=== PATIENT | female | born 1950 | race African-American/Black ===

== ENCOUNTER 2017-10-22 11:43 | Emergency (ER) | payer OTHER ==
[~2017-10-22] VITALS: Ht 167.6 cm; Wt 81.7 kg
[2017-10-22] MEDS ORDERED: HYDROCODONE-AP1 EAC6 PO (13:49)
[2017-10-22 14:06] VITALS: BP 161/99
== END 2017-10-22 13:45 | disposition home or self-care (01) ==
LOC: ER 11:43
DX: M25.462 Effusion, left knee (principal); G89.29 Other chronic pain; M25.562 Pain in left knee; T24.222A Burn of second degree of left knee, initial encounter; T31.0 Burns involving less than 10% of body surface; I10 Essential (primary) hypertension; I48.91 Unspecified atrial fibrillation; E03.9 Hypothyroidism, unspecified; M13.869 Other specified arthritis, unspecified knee; Z88.0 Allergy status to penicillin; Z88.1 Allergy status to other antibiotic agents; Z91.013 Allergy to seafood; X16.XXXA Contact with hot heating appliances, radiators and pipes, initial encounter; Y93.89 Activity, other specified; Y92.89 Other specified places as the place of occurrence of the external cause; Y99.8 Other external cause status

== ENCOUNTER 2020-07-07 10:43 | Emergency (ER) | payer OTHER ==
[~2020-07-07] VITALS: Ht 165.1 cm; Wt 81.7 kg
[~2020-07-07 10:43] MED LIST: HYDROCODONE-AP1 EAC6 PO
[2020-07-07 12:11] LABS: ABSOLUTE NEUTROPHILS 6.7 thou/uL (1.4-8.2); BASOPHILS 0.4 % (0.0-2.0); EOSINOPHILS 1.2 % (0.0-3.0); HEMATOCRIT 39.9 % (37.0-47.0); HEMOGLOBIN 13.2 gm/dL (12.0-15.0); LYMPHOCYTES 17.7 % (24.0-44.0); MCH 31.2 pg (26.0-34.0); MCV 94.4 fL (80.0-100.0); MONOCYTES 5.5 % (1.0-8.0); PLATELET COUNT 245 thou/uL (150-400); POLYS 75.2 % (36.0-66.0); RBC 4.22 mil/uL (4.20-5.00); RDW 16.2 % (10.5-14.5); WBC 8.9 thou/uL (4.0-11.0)
[2020-07-07 12:21] LABS: ANION GAP 13 mmol/L (7-16); BUN 11 mg/dL (7-18); CALCIUM 9.6 mg/dL (8.5-10.1); CHLORIDE 102 mmol/L (98-107); CO2 23 mmol/L (21-32); GLUCOSE 155 mg/dL (74-106); POTASSIUM 3.1 mmol/L (3.5-5.1); SODIUM 138 mmol/L (136-145)
[2020-07-07 12:30] LABS: TROPONIN-I <0.06 ng/mL (<0.06)
--- NOTE | 2020-07-07 13:34 | EKG ---
[facility] [place] [address] ELECTROCARDIOGRAM REPORT Name: LOREE DEAN Room #: [facility]#: [id number] Admission: 07/07/20 Attend Phys: Discharge: Date of : 46 Report #: [id number] THIS REPORT FOR: cc: Bradford Mijares MD, Thomas P. MD Santiago, Patrick MD [facility] ~ THIS REPORT FOR: //name// [facility] ED Test Date: 2020-07-07 Test Time: 10:52:55 Pat Name: LOREE POWERDepartment: Room: Gender: F Mechanical Engineering Specialist: : [id number] Requested By: cL Souza Order Number: [id number] : Margarito Roberts Measurements Intervals [place] Rate: 115 P: HI: QRS: 17 QRSD: 102 T: 28 QT: 349 QTc: 483 Interpretive Statements Atrial fibrillation Borderline repolarization abnormality Borderline prolonged QT interval Compared to ECG 03/11/2008 18:28:06 Sinus bradycardia no longer present T-wave abnormality no longer present Electronically Signed On 07-07-2020 13:34:23 CARDIOLOGY NURSE by Margarito Roberts [email or web address] <ELECTRONICALLY SIGNED> By: Margarito Roberts MD, FACC 07/07/20 1334 [id number] [id number] Margarito Roberts MD, [facility] /EPI
[2020-07-07 13:51] LABS: URINE BILIRUBIN NEGATIVE (Negative); URINE BLOOD NEGATIVE (Negative); URINE CLARITY CLEAR; URINE COLOR YELLOW; URINE GLUCOSE-RANDOM* 3+ (Negative); URINE KETONES NEGATIVE (Negative); URINE NITRITE-REFLEX NEGATIVE (Negative); URINE PROTEIN (DIPSTICK) NEGATIVE (Negative); URINE SPECIFIC GRAVITY <= 1.005 (1.005-1.035); URINE UROBILINOGEN 0.2 E.U./dl (0.2-1.0)
[2020-07-07 13:52] LABS: URINE LEUKOCYTES-REFLEX 1+ (Negative)
[2020-07-07 14:02] LABS: CASTS None Seen /LPF (None Seen); CRYSTALS None Seen /LPF (None Seen); SQUAMOUS >10 Many /LPF (0-3); URINE RBC None Seen /HPF (0-2); URINE WBC-REFLEX 0-5 Rare /HPF (0-5)
[2020-07-07 16:18] VITALS: BP 137/99
== END 2020-07-07 16:19 | disposition home or self-care (01) ==
LOC: ER 10:43
PROVIDERS: Nurse Practitioner
DX: U07.1 COVID-19 (principal); R53.1 Weakness; I48.0 Paroxysmal atrial fibrillation; E86.0 Dehydration; R53.83 Other fatigue; I10 Essential (primary) hypertension; E03.9 Hypothyroidism, unspecified; Z90.89 Acquired absence of other organs; Z79.899 Other long term (current) drug therapy; Z88.0 Allergy status to penicillin; Z91.013 Allergy to seafood

== ENCOUNTER → 2020-08-03 | Outpatient (CLI) | payer OTHER | LOC: SJCVCIMAG 07-28 07:44 | PROVIDERS: ATTEND Internal Medicine | DX: I08.1 Rheumatic disorders of both mitral and tricuspid valves (principal); I11.9 Hypertensive heart disease without heart failure; I48.91 Unspecified atrial fibrillation; R55 Syncope and collapse; Z79.899 Other long term (current) drug therapy; Z86.16 Personal history of COVID-19 ==